=== PATIENT | male | born 1960 | race Caucasian/White ===

== ENCOUNTER 2024-03-29 10:35 | Emergency (ER) | payer OTHER, SELFPAY ==
[2024-03-29 10:37] VITALS: BP 126/79; PULSE 81; RESP 18; TEMP 36.4; O2SAT 100
--- NOTE | 2024-03-29 11:12 | ED.WOUNDLAC ---
HPI - Wound/Laceration General Chief Complaint: Wound/Laceration Stated Complaint: lip laceration Time Seen by Provider: 03/29/24 11:09 Source: patient Mode of arrival: ambulatory Limitations: no limitations History of Present Illness HPI narrative: Obi is a 63-year-old male patient presenting to the clinic today with complaints of a lip laceration to the upper lip. Laceration does not cross the vermilion border. Reports that his hit his lip on a beam. Bleeding controlled. Related Data Allergies Allergy/AdvReac Type Severity Reaction Status Date / Time Penicillins AdvReac Rash Verified 03/29/24 10:36 Review of Systems Review of Systems: Pertinent positives per HPI. Patient denies any fever, chills, rash, headache, visual changes, dizziness, cough, runny nose, sore throat, shortness of breath, chest pain, palpitations, nausea, vomiting, diarrhea, constipation, abdominal pain, or any urinary issues. PMFSH Comments At the time of my signature, I reviewed and agree with the nursing past medical, surgical, social, and family history. There is no relevant family history pertinent to the patient complaint. Exam Narrative: General: Well-developed, well nourished, in no apparent distress Head: Normocephalic, atraumatic. Cardio: Regular rate and rhythm, s1 and s2 normal, no murmur appreciated. Resp: Clear to auscultation bilaterally, no rhonchi, rales, wheezing or rubs. Integumentary: [place], warm, and dry, 2 cm laceration across the upper lip that does not cross into the vermilion border. Course Course Emergency Course: Portions of this record may have been created with voice recognition software. Vital Signs Vital signs: Vital Signs Temperature 36.4 C 03/29/24 10:37 Pulse Rate 81 03/29/24 10:37 Respiratory Rate 18 03/29/24 10:37 Blood Pressure 126/79 03/29/24 10:37 Pulse Oximetry 100 03/29/24 10:37 Oxygen Delivery Room Air 03/29/24 10:37 Temperature 36.4 C 03/29/24 10:37 Pulse Rate 81 03/29/24 12:52 Respiratory Rate 19 03/29/24 12:52 Blood Pressure 126/78 03/29/24 12:52 Pulse Oximetry 97 03/29/24 12:52 Oxygen Delivery Room Air 03/29/24 10:37 Vital signs reviewed Procedures Laceration Laceration 1: Date: 03/29/24 Site: lip Description: linear Depth: simple, single layer Local Anesthetic: lidocaine 1% Amount of anesthesia used (mL): 2 Pre-repair: wound explored and irrigated ====== Skin Level ====== Skin layer closed with: nylon Size (cm): 5-0 Number of sutures: 8 Technique: simple, interrupted ====== Subcutaneous Layer ====== ====== Muscle Layer ====== ====== Tendon Layer ====== Dressing: Verbal consent obtained for laceration repair. Risk and benefits explained and patient voiced understanding. Area was cleansed with sterile saline and a 27 gauge needle was then used to instill (2) ml of 1% lidocaine without epi into the wound edges. Area was prepped and draped using sterile technique. A 5-0 suture on a p needle was used to place (8) interrupted sutures bringing the wound edges together- well approximated. Patient tolerated procedure well. Sterile dressing applied. MDM - Wound/Laceration MDM Narrative Medical decision making narrative: At the time of visit patient is resting comfortably on the exam table. Patient appears to be nontoxic. Procedure: Laceration repair was performed. Plan: I suspect patient has a lip laceration not crossing the vermilion border. Eight interrupted sutures were placed bringing wound edges well approximated. Patient tolerated well. Supportive measures were discussed with the patient and they voiced understanding discharge instructions and agrees to treatment plan. Return precautions reviewed Differential Diagnosis Differential diagnosis: Likely laceration, abscess, abrasion and avulsion of skin Discharge Plan
[2024-03-29] MEDS: LIDOCAINE HCL 1% LOCAL INJ 10 ML VIAL INFILTRATE (12:43)
[2024-03-29 12:52] VITALS: BP 126/78; PULSE 81; RESP 19; O2SAT 97
== END 2024-03-29 12:54 | disposition home or self-care (01) ==
PROVIDERS: Emergency Provider Nurse Practitioner Family
DX: S01.511A Laceration without foreign body of lip, initial encounter (principal); W22.09XA Striking against other stationary object, initial encounter
CPT/HCPCS: 12011; 99282